=== PATIENT | female | born 1970 | race Two or more races ===

== ENCOUNTER 2017-12-03 14:01 | Outpatient (CLI) | payer OTHER | END 2017-12-03 14:06 | disposition home or self-care (01) | LOC: SONOGRAMA 14:01 | DX: N60.02 Solitary cyst of left breast (principal); N60.11 Diffuse cystic mastopathy of right breast; N60.12 Diffuse cystic mastopathy of left breast ==

== ENCOUNTER 2020-07-05 09:00 | Outpatient (CLI) | payer OTHER | END 2020-07-05 15:00 | disposition home or self-care (01) | LOC: PPH VACUNA 09:00 | DX: Z23 Encounter for immunization (principal) ==

== ENCOUNTER 2020-12-18 05:57 | Day surgery (SDC) | payer OTHER ==
[~2020-12-18 05:57] MED LIST: NORVASC2.5 M1 PO
== END 2020-12-18 10:15 | disposition home or self-care (01) ==
LOC: CIR.AMB 05:57
PROVIDERS: ATTEND Obstetrics & Gynecology Maternal & Fetal Medicine
DX: D25.0 Submucous leiomyoma of uterus (principal); Z20.822 Contact with and (suspected) exposure to COVID-19